=== PATIENT | female | born 1960 | race Caucasian/White ===

== ENCOUNTER 2017-05-04 11:21 | Emergency (ER) | payer OTHER ==
[~2017-05-04] VITALS: Ht 162.6 cm; Wt 86.4 kg
[2017-05-04 11:44] VITALS: TEMP 98.3
[2017-05-04 12:24] LABS: BASO # 0.1 (0.0-0.2); BASO % 1.1 % (0.0-2.0); EOS # 0.1 (0.0-0.7); EOS % 1.1 % (0-4.0); GRAN % 44.8 % (42.2-75.2); HEMATOCRIT 40.5 % (37.0-47.0); HEMOGLOBIN 13.6 g/dl (12.5-16.0); LYMPH # 1.9 (1.2-3.4); MEAN CELL VOLUME 100 fl (80.0-100.0); MEAN CORPUSCULAR HEMOGLOBIN 34 pg (27.0-31.0); MEAN CORPUSCULAR HGB CONC 34 g/dl (33.0-37.0); MEAN PLATELET VOLUME 10.7 fl (7.4-10.4); MONO # 0.5 (0.1-0.6); MONO % 10.8 % (1.7-9.3); PLATELET COUNT 281 K/mm3 (130-400); RED BLOOD COUNT 4.05 M/mm3 (4.10-5.30); REDCELL DISTRIBUTION WIDTH-CV 12.9 % (11.5-14.5); WHITE BLOOD COUNT 4.5 K/mm3 (4.8-10.8)
[2017-05-04 12:53] LABS: ADJUSTED CALCIUM 9.1 mg/dL (8.4-10.2); ALANINE AMINOTRANSFERASE 48 U/L (9-52); ALBUMIN 4.3 gm/dL (3.5-5.0); ALKALINE PHOSPHATASE 74 U/L (50-136); ANION GAP 12 mmol/L (7-16); BILIRUBIN,TOTAL 0.6 mg/dL (0.0-1.0); BLOOD UREA NITROGEN 19 mg/dL (7-17); CALCIUM 9.3 mg/dL (8.4-10.2); CARBON DIOXIDE 26 mmol/L (22-30); CHLORIDE 103 mmol/L (98-107); CREATININE, serum 0.77 mg/dL (0.52-1.25); GLUCOSE 84 mg/dL (74-106); LIPASE 78 U/L (23-300); POTASSIUM 3.8 mmol/L (3.4-5.0); SODIUM 141 mmol/L (137-145); TOTAL PROTEIN 7.5 gm/dL (6.4-8.2)
[2017-05-04 13:05] LABS: TROPONIN-I < 0.012 ng/mL (0.000-0.034)
[2017-05-04] MEDS ORDERED: ZESTRIL 10MG10 MG PO (13:24)
[2017-05-04 13:30] VITALS: BP 159/88; PULSE 71
== END 2017-05-04 13:48 | disposition home or self-care (01) ==
LOC: COL.ER 11:21
PROVIDERS: Emergency Medicine
DX: I10 Essential (primary) hypertension (principal); R07.9 Chest pain, unspecified; R00.2 Palpitations; R06.02 Shortness of breath

== ENCOUNTER → 2017-10-31 | Outpatient (CLI) | payer OTHER ==
[~2017-10-31] MED LIST: ZESTRIL 10MG10 MG PO
== END ==
LOC: MC.RAD 10:19
DX: Z12.31 Encounter for screening mammogram for malignant neoplasm of breast (principal); N64.89 Other specified disorders of breast

== ENCOUNTER → 2017-11-13 | Outpatient (CLI) | payer OTHER | LOC: MC.RAD 13:57 | DX: N63.20 Unspecified lump in the left breast, unspecified quadrant (principal) ==

== ENCOUNTER → 2017-11-14 | Outpatient (CLI) | payer OTHER | LOC: MC.RAD 07:15 | DX: N63.21 Unspecified lump in the left breast, upper outer quadrant (principal); N64.89 Other specified disorders of breast ==

== ENCOUNTER 2019-02-07 07:20 | Day surgery (SDC) | payer OTHER ==
[~2019-02-07] VITALS: Ht 162.6 cm; Wt 92.4 kg
[2019-02-07] VITALS (7 sets, daily range): BP systolic 105–139; BP diastolic 67–89; PULSE 65–85; TEMP 97.6–98.4
[2019-02-07] MEDS ORDERED: UNISOM25 MG PO (08:09)
[2019-02-07] MEDS ORDERED: MELATONIN3 MG PO (08:09)
--- NOTE | 2019-02-07 08:55 | NUR ---
Patient is feeling well. Oxygen maintained at 91% 1L via NC. Will titrate down to room air. Will continue to monitor.
--- NOTE | 2019-02-07 09:08 | NUR ---
Patient brought back to [facility]. Alert and oriented. Ambulated to chair without difficulty. States that she is slightly dizzy but no nausea or pain. Vital signs obtained, WNL. Requesting soda and muffin, tolerating well. Call ballesteros within reach will continue to monitor.
--- NOTE | 2019-02-07 09:10 | NUR ---
Patient states that he is ready to go home. Calling friend to come pick him up. SpO2 maintaining at 87% on room air which is baseline for patient. Will continue to monitor.
--- NOTE | 2019-02-07 09:25 | NUR ---
Discharge instructions reviewed with patient. All questions answered. IV removed. Patient to get dressed.
--- NOTE | 2019-02-07 09:38 | NUR ---
Patient wheeled down to lobby. To be driven home by friend.
--- NOTE | 2019-02-07 09:46 | NUR ---
Patient states she is feeling well, vital signs WNL. Tolerated food and drink without any difficulty. Herber at bedside. Requesting more to drink. Call ballesteros within reach, will continue to monitor.
--- NOTE | 2019-02-07 09:53 | NUR ---
Patient states she is ready to go home. Vital signs stable. Tolerated food and drink well. Will continue to monitor.
--- NOTE | 2019-02-07 10:17 | NUR ---
Vital signs entered in error at [id number] and [id number]. Documented on wrong patient.
--- NOTE | 2019-02-07 10:35 | NUR ---
Dishcarge instructions reviewed with patient and , all questions answered. IV removed. Patient to get dressed.
--- NOTE | 2019-02-07 10:42 | NUR ---
Patient brought down to lobby via wheel chair. To be driven home by .
== END 2019-02-07 10:42 | disposition home or self-care (01) ==
LOC: SDCO 07:20
DX: Z12.11 Encounter for screening for malignant neoplasm of colon (principal); Z80.0 Family history of malignant neoplasm of digestive organs; Z90.710 Acquired absence of both cervix and uterus; I10 Essential (primary) hypertension; K57.30 Diverticulosis of large intestine without perforation or abscess without bleeding
CPT/HCPCS: OP; J2250; J3010; J7030

== ENCOUNTER → 2019-02-28 | Outpatient (CLI) | payer OTHER ==
[~2019-02-28] MED LIST changes: +MELATONIN3 MG PO; +UNISOM25 MG PO
== END ==
LOC: MC.RAD 07:06
DX: Z12.31 Encounter for screening mammogram for malignant neoplasm of breast (principal); Z98.82 Breast implant status

== ENCOUNTER → 2020-06-24 | Outpatient (CLI) | payer OTHER | LOC: MC.RAD 13:36 | DX: Z12.31 Encounter for screening mammogram for malignant neoplasm of breast (principal) ==

== ENCOUNTER → 2021-12-30 | Outpatient (CLI) | payer OTHER | LOC: MC.RAD 09-23 10:45 | DX: Z12.31 Encounter for screening mammogram for malignant neoplasm of breast (principal) ==